=== PATIENT | female | born 1975 | race Caucasian/White ===

== ENCOUNTER 2019-10-02 10:47 | Emergency (ER) | payer SELFPAY ==
[2019-10-02 10:51] VITALS: BP 153/87
--- NOTE | 2019-10-02 10:58 | ER Document Report ---
ED Medical Screen (RME) - General Chief Complaint: Swallowed Foreign Body Stated Complaint: EGGSHELL COUGHT IN THROAT Time Seen by Provider: 10/02/19 10:50 Mode of Arrival: Ambulatory Information source: Patient Notes: 44-year-old female presents emergency department with reports that she was eating scrambled eggs and swallowed a child. She reports it felt like it was floating at first but now feels like it is kind of lodged in her esophagus and scratching her throat. Patient reports she is been able to swallow without difficulty. Patient has clear voice respiratory rate even unlabored. Contacted Dr. Valentin in radiology and he advised soft tissue of the neck without. - Related Data Allergies/Adverse Reactions: No Known Allergies Allergy (Unverified 10/02/19 10:55) Home Medications: denies Past Medical History - General Information source: Patient - Social History Chew tobacco use (# tins/day): No Frequency of alcohol use: Social Drug Abuse: None Lives with: Family Family history: None - Medical History Medical History: Negative Surgical Hx: Negative Review of Systems - Review of Systems Notes: Review HPI for review of systems., All other systems negative Physical Exam - Vital signs Vitals: Temp Pulse Resp BP Pulse Ox 98.1 F 76 20 153/87 H 99 10/02/19 10:51 10/02/19 10:51 10/02/19 10:51 10/02/19 10:51 10/02/19 10:51 - General General appearance: Appears well, Alert, Anxious In distress: None - HEENT Head: Normocephalic Eyes: Normal Conjunctiva: Normal Extraocular movements intact: Yes Mucous membranes: Normal, Moist Pharynx: Normal - good airway, clear voice, no foreign body noted. No: Erythema, Exudate, Retropharyngeal abscess, Tonsillar hypertrophy, Uvular edema, Potential airway comprom. Neck: Supple - Respiratory Respiratory status: No respiratory distress Chest status: Nontender Breath sounds: Normal Chest palpation: Normal - Cardiovascular Rhythm: Regular Heart sounds: Normal auscultation Murmur: No - Extremities General upper extremity: Normal ROM General lower extremity: Normal ROM - Neurological Neuro grossly intact: Yes Cognition: Normal Orientation: AAOx4 [place] Coma Scale Eye Opening: Spontaneous [place] Coma Scale Verbal: Oriented [place] Coma Scale Motor: Obeys Commands [place] Coma Scale Total: 15 - Psychological Associated symptoms: Normal affect, Normal mood - Skin Skin Temperature: Warm Skin Moisture: Dry Skin Color: Normal Course - Re-evaluation Re-evalutation: 10/02/19 11:13 44-year-old female presents with possible eggshell caught in her throat. A CT without contrast was ordered. When patient went to radiology she received a message from her saying he obtained an ENT appointment for her now. Patient declined a CT and is requesting to leave. Discharge instructions completed. Patient has a clear voice no airway compromise. - Vital Signs Vital signs: Temp Pulse Resp BP Pulse Ox 98.1 F 76 20 153/87 H 99 10/02/19 10:51 10/02/19 10:51 10/02/19 10:51 10/02/19 10:51 10/02/19 10:51 Doctor's Discharge - Discharge Clinical Impression: Foreign body in throat Qualifiers: Encounter type: initial encounter Qualified Code(s): T17.208A - Unspecified foreign body in pharynx causing other injury, initial encounter Condition: Stable Additional Instructions: *You have been evaluated for possible foreign body in your throat *Good hand washing *Follow-up with ENT now as scheduled *Return to ED for worsening condition change, needs, occultly breathing unable to swallow
== END 2019-10-02 11:10 | disposition home or self-care (01) ==
LOC: ER 10:47
DX: T17.208A Unspecified foreign body in pharynx causing other injury, initial encounter (principal); X58.XXXA Exposure to other specified factors, initial encounter; Y93.89 Activity, other specified
CPT/HCPCS: 99283